=== PATIENT | male | born 1980 | race Asian ===

== ENCOUNTER 2019-08-07 04:06 | Emergency (ER) | payer OTHER ==
[~2019-08-07] VITALS: Ht 167.6 cm; Wt 59.0 kg
[2019-08-07] MEDS ORDERED: KEFLEX500 M1 PO ×2 (06:03→06:09)
[2019-08-07] MEDS ORDERED: TRAMADOL 50 MG50 MG PO (06:04)
[2019-08-07 06:29] VITALS: BP 140/78
== END 2019-08-07 06:39 | disposition home or self-care (01) ==
LOC: ER 04:06
DX: S96.822A Laceration of other specified muscles and tendons at ankle and foot level, left foot, initial encounter (principal); V29.3XXA Motorcycle rider (driver) (passenger) injured in unspecified nontraffic accident, initial encounter; Y93.55 Activity, bike riding; Y92.89 Other specified places as the place of occurrence of the external cause; Y99.8 Other external cause status